=== PATIENT | male | born 1965 | race Caucasian/White ===

== ENCOUNTER 2023-09-06 08:03 | Emergency (ER) | payer OTHER, SELFPAY ==
[2023-09-06 08:13] VITALS: BP 127/84; PULSE 69; RESP 16; TEMP 36.3; O2SAT 97
--- NOTE | 2023-09-06 08:31 | ED.URI ---
HPI - URI/Sore Throat General Chief Complaint: Upper Respiratory Infection Stated Complaint: Sore Throat/Body Aches Time Seen by Provider: 09/06/23 08:31 Source: patient and RN notes reviewed Mode of arrival: ambulatory Limitations: no limitations History of Present Illness HPI Narrative: 58-year-old male presented for complaint of nasal congestion, body aches, sore throat, headache. Onset 2 days. endorses exposure to covid. Taking milvia seltzer and ibuprofen. Denies sob, wheezing, n/v/d. MD elicited complaint: cough Related Data Home Medications Medication Instructions Recorded Confirmed olmesartan 20 mg-amlodipine 5 1 tablet PO DAILY 09/06/23 09/06/23 mg-hydrochlorothiazide 12.5 mg tablet testosterone 1 pump topical DAILY 09/06/23 09/06/23 Allergies Allergy/AdvReac Type Severity Reaction Status Date / Time No Known Allergies Allergy Verified 09/06/23 08:34 Review of Systems Review of Systems: CONSTITUTIONAL: Endorses malaise, chills, sweats EYES: Denies visual changes, redness, or discharge ENT: Reports rhinorrhea, congestion, sore throat CARDIOVASCULAR: Denies chest pain, palpitations, edema RESPIRATORY: Reports cough, post nasal drainage. Denies dyspnea GASTROINTESTINAL: Denies abdominal pain, nausea, vomiting, diarrhea SKIN: Denies rash or itching MUSCULOSKELETAL: Endorses myalgia NEUROLOGIC: Denies headache PMFSH Past Medical History Medical History [place] Exam Narrative: GENERAL: well-appearing, nontoxic no acute distress. EYES: PERRLA, conjunctivae clear ENT: Mucous membranes moist. TM pearly ferrari with dull light reflex bilaterally; no tragal tenderness. Oropharynx erythematous without lesions or exudate, no drooling, no hoarseness, no trismus, uvula midline. No tripod positioning, muffled voice, soft palate or pharyngeal wall bulging NECK: Supple. No lymphadenopathy CHEST: Clear to auscultation, breath sounds equal. HEART: Regular rate and rhythm. No murmur heard. SKIN: Warm, dry, no rash. NEURO: Alert and oriented x3. PSYCH: Normal mood and affect Course Course Emergency Course: Patient is aware of diagnosis, understands and agrees to treatment plan. Anticipatory guidance given. Patient agrees to follow-up as directed and is aware of reasons to seek care at the emergency department. Portions of this record may have been created with voice recognition software Level of Care: Express Care Visit Vital Signs Vital signs: Vital Signs Temperature 97.4 F L 09/06/23 08:13 Pulse Rate 69 09/06/23 08:13 Respiratory Rate 16 09/06/23 08:13 Blood Pressure 127/84 09/06/23 08:13 Pulse Oximetry 97 09/06/23 08:13 Oxygen Delivery Room Air 09/06/23 08:13 Temperature 97.4 F L 09/06/23 08:13 Pulse Rate 69 09/06/23 08:13 Respiratory Rate 16 09/06/23 08:13 Blood Pressure 127/84 09/06/23 08:13 Pulse Oximetry 97 09/06/23 08:13 Oxygen Delivery Room Air 09/06/23 08:13 reviewed MDM - URI/Sore Throat MDM Narrative Medical decision making narrative: Negative COVID Discussed physical exam findings. Advised supportive measures and signs/symptoms to go to the ER. Pt is appropriate for outpt treatment and f/u. Differential Diagnosis Differential diagnosis: Likely upper respiratory infection, sinusitis and viral infection Discharge Plan Discharge Clinical Impression: Upper respiratory infection Patient Disposition: Home, Self-Care Condition: Stable Instructions: Antibiotic Form, Upper Respiratory Infection (ED) Additional Instructions: Recommend Flonase spray and Zyrtec (or Claritin/Nelsy) over the counter Cough syrup may cause drowsiness; avoid driving or take it at night time. Tylenol 1000mg every 8 hours as needed for pain Symptomatic treatment includes: rest, fluids, and increase humidity of the air at home. Follow up with your primary care provider in 1 week. Go t
== END 2023-09-06 08:53 | disposition home or self-care (01) ==
PROVIDERS: Emergency Provider Nurse Practitioner Family
DX: J06.9 Acute upper respiratory infection, unspecified (principal); Z20.822 Contact with and (suspected) exposure to COVID-19; Z85.831 Personal history of malignant neoplasm of soft tissue
CPT/HCPCS: 87426; 87804; 99213; G0463